=== PATIENT | male | born 1950 | race Caucasian/White ===

== ENCOUNTER → 2023-07-03 07:33 | Outpatient (REF) | payer MEDICARE, OTHER, SELFPAY | LOC: EMG 07:33 | PROVIDERS: ATTENDING PHYSICIAN Orthopaedic Surgery Hand Surgery; FAMILY PHYSICIAN Family Medicine | DX: R20.0 Anesthesia of skin (principal); G56.01 Carpal tunnel syndrome, right upper limb | CPT/HCPCS: 95886; 95909 ==

== ENCOUNTER → 2023-07-09 13:02 | Outpatient (REF) | payer MEDICARE, OTHER, SELFPAY ==
[2023-07-09 14:00] LABS: Hematocrit 43.1 % (39.0-52.0); Hemoglobin 14.7 g/dL (13.0-18.0); Mean Corp Hgb Conc. 34.1 g/dL (33.0-37.0); Mean Corpuscular Hgb 30.4 pg (27.0-31.0); Mean Corpuscular Volume 89.2 fL (80.0-94.0); Mean Platelet Volume 9.8 fL (7.4-10.4); Platelet Count 185 10^3/uL (130-400); Red Blood Cell Count 4.83 10^6/uL (4.70-6.10); Red Cell Dist. Width 12.8 % (11.5-14.5); White Blood Cell Count 7.8 10^3/uL (4.8-10.8)
== END ==
LOC: SDSPAT 13:02
PROVIDERS: ATTENDING PHYSICIAN Orthopaedic Surgery Hand Surgery; FAMILY PHYSICIAN Family Medicine
DX: Z01.818 Encounter for other preprocedural examination (principal)
CPT/HCPCS: 36415; 85027; 93005

== ENCOUNTER 2023-07-30 06:30 | Day surgery (SDC) | payer MEDICARE, OTHER, SELFPAY ==
[2023-07-09 13:18] VITALS: BMI 36.7
[2023-07-30] VITALS (10 sets, daily range): BP systolic 140–165; BP diastolic 72–93; BMI 36.7
[2023-07-30] MEDS: NORMOSOL-R 1000 IV (10:34)
[2023-07-30] MEDS: TYLENOL 1000 MG PO (10:35)
[2023-07-30] MEDS: CELEBREX 200 MG PO (10:36)
[2023-07-30] MEDS: DILAUDID 0.25 MG IV ×2 (13:58→14:09)
[2023-07-30] MEDS: MORPHINE SULFATE 1 MG IV (14:25)
[2023-07-30] MEDS: ROXICODONE 5 MG PO (15:24)
== END 2023-07-30 15:45 | disposition home or self-care (01) ==
LOC: SDS 06:30
PROVIDERS: ATTENDING PHYSICIAN Orthopaedic Surgery Hand Surgery; FAMILY PHYSICIAN Family Medicine
DX: G56.01 Carpal tunnel syndrome, right upper limb (principal); G56.21 Lesion of ulnar nerve, right upper limb
CPT/HCPCS: 64718; 64721

== ENCOUNTER → 2023-09-29 06:23 | Day surgery (SDC) | payer MEDICARE, OTHER, SELFPAY | LOC: GI 06:23 | PROVIDERS: ATTENDING PHYSICIAN Internal Medicine Gastroenterology | DX: Z12.11 Encounter for screening for malignant neoplasm of colon (principal); Z86.010 Personal history of colon polyps; K64.8 Other hemorrhoids | CPT/HCPCS: G0105 ==

== ENCOUNTER → 2023-11-14 12:06 | Outpatient (REF) | payer MEDICARE, OTHER, SELFPAY ==
[2023-11-14 13:37] VITALS: BMI 35.4
[2023-11-14 13:47] LABS: Hematocrit 40.3 % (39.0-52.0); Hemoglobin 14.2 g/dL (13.0-18.0); Mean Corp Hgb Conc. 35.2 g/dL (33.0-37.0); Mean Corpuscular Hgb 31.4 pg (27.0-31.0); Mean Corpuscular Volume 89.2 fL (80.0-94.0); Mean Platelet Volume 10.2 fL (7.4-10.4); Platelet Count 179 10^3/uL (130-400); Red Blood Cell Count 4.52 10^6/uL (4.70-6.10); Red Cell Dist. Width 13.4 % (11.5-14.5); White Blood Cell Count 6.5 10^3/uL (4.8-10.8)
== END ==
LOC: SDSPAT 12:06
PROVIDERS: ATTENDING PHYSICIAN Orthopaedic Surgery Hand Surgery; FAMILY PHYSICIAN Family Medicine
DX: Z01.818 Encounter for other preprocedural examination (principal)
CPT/HCPCS: 36415; 85027

== ENCOUNTER 2023-11-19 06:22 | Day surgery (SDC) | payer MEDICARE, OTHER, SELFPAY ==
[2023-11-19] VITALS (8 sets, daily range): BP systolic 127–182; BP diastolic 58–83; BMI 35.4
[2023-11-19] MEDS: NORMOSOL-R 1000 IV (07:26)
[2023-11-19] MEDS: TYLENOL 1000 MG PO (07:26)
[2023-11-19] MEDS: CELEBREX 200 MG PO (07:26)
== END 2023-11-19 10:04 | disposition home or self-care (01) ==
LOC: SDS 06:22
PROVIDERS: ATTENDING PHYSICIAN Orthopaedic Surgery Hand Surgery; FAMILY PHYSICIAN Family Medicine
DX: M70.21 Olecranon bursitis, right elbow (principal)
CPT/HCPCS: 24105; 88304